=== PATIENT | female | born 1970 | race Caucasian/White ===

== ENCOUNTER 2020-01-04 11:34 | Inpatient (IN) ==
[2020-01-04] MEDS ORDERED: MECLIZINE HCL 25 MG TAB PO STA (12:50)
--- NOTE | 2020-01-04 12:53 | Emergency Department Note ---
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 Her ears pop. Following this she felt severely dizzy. This has gotten better. This occurred around 10 AM this morning. She has never had this before. She denies any change in vision or weakness or numb ness in her arms or legs. No headache. No fevers.Patient denies any chest pain shortness of breath cough or runny nose. She notes that she is just finishing up her antibiotics for her right otitis media. She was on 10 days of treatment for this. She does note keeping her head still in time has improved her symptoms. ROS: See above HPI for pertinent positives & negatives. A total of 10 systems reviewed and were otherwise negative. PAST MEDICAL HISTORY:See Below PAST SURGICAL HISTORY:See Below FAMILY HISTORY:See Below SOCIAL HISTORY:See Below HOME MEDICATIONS:See Below ALLERGIES:See Below VITALS:See Below PHYSICAL EXAMINATION: GENERAL: Sitting up in bed, alert, well appearing, well nourished, no distress, non-toxic EYE EXAM: normal conjunctiva. PERRL and EOM's intact. OROPHARYNX: no exudate, no erythema, lips, buccal mucosa, and tongue normal and mucous membranes are moist NECK: supple, no nuchal rigidity, no adenopathy, non-tender LUNGS: Clear to auscultation. Normal chest wall mechanics HEART: no murmurs, S1 normal and S2 normal ABDOMEN: abdomen soft, non-tender, normo-active bowel sounds, no masses, no rebound or guarding. BACK: Back is symmetrical on inspection and there is no deformity, no midline tenderness, no CVA tenderness. SKIN: no rashes and no bruising UPPER EXTREMITIES: upper extremities are grossly normal. LOWER EXTREMITIES: No pitting edema. NEURO EXAM: Normal sensorium, cranial nerves II-XII intact, normal speech, no weakness of arms, no weakness of legs. No drift. Finger to nose intact. Gross sensation intact. MEDICAL DECISION MAKING: Patient is a 49-year-old female that presents the ER for dizziness. She notes that this Started around 10 AM and has been fairly persistent. It is worse with movement of her head. She denies any other complaints. She did vomit. She is neurologically intact.IV was established blood work was obtained. Labs show no significant leukocytosis or anemia. INR was unremarkable. BMP with LFTs bilirubin and TSH was unremarkable. Troponin was detectable at 0.042. She had no chest pain or shortness of breath. EKG confirms A. fib with RVR. She notes that she has had palpitations fairly consistent for the past week.Patient was placed on Cardizem drip and bolus. Heart rate trended down to the 90s. Dizziness went away with the Antivert.Patient was updated and discussed with the hospitalist for admission. Triage Nursing notes reviewed. Prior medical records reviewed Vital Signs: reviewed and remarkable for Hypertension and tachycardia Differential diagnosis: Differential diagnosis includes etiologies such as benign positional vertigo, dehydration, hypovolemia, anemia, tumor, infection, hypoglycemia, electrolyte abnormalities, cardiac sources, intracerebral event, toxicologic, neurological, as well as others were entertained. ER treatment provided: See below Diagnostics interpreted by me: ECG: A. fib with RVR rate 104 Normal axis No PVCs Nonspecific ST wave changes in the inferior leads Cardiac Monitoring: An order was placed for continuous cardiac monitoring. The monitor shows a rate of 114 with afib rhythm. Laboratory studies: As stated above and show below. Imaging studies: Portable AP upright 1 view of the chest was unremarkable. CT of the head shows no acute infarct Consultation(s): D/w the hospitalist for admission. ED COURSE: Procedures: none Critical Care: I have personally spent 35 minutes of critical care time in the direct manage ment of this patient. This includes bedside care, interpretation of diagnostic studies, and testing, discussion with consultants, patient, and family members, and other required patient management activities. This 35 minutes is in excess of all separately billable procedures. Past Med/Surg History Medical History Anxiety Diabetes mellitus, type 2 Diverticular disease History of anesthesia reaction "woke up during c-sections (had general) and could hear everything, during one of c-sections had a panic attack when they were waking me up" Hypertension Morbid obesity with BMI of 45.0-49.9, adult Surgical History History of section x3 History of right oophorectomy History of tooth extraction Status post myringotomy with tube placement of both ears multiple times Family History Mother Family history of diabetes mellitus Family hx colonic polyps Grandfather (Maternal) Family history of diabetes mellitus Grandfather (Paternal) Family history of diabetes mellitus Grandmother (Paternal) Family history of diabetes mellitus Grandmother (Maternal) Family history of diabetes mellitus Family history of esophageal cancer Other No family history of adverse response to anesthesia Social History Preferred Language: Armenian Communication Ability: Effective Graining Operator Required: No Beliefs That Will Affect Care: None Current Living Situation: Spouse and Family Current Living Situation Comment: Lives with significant other and kids Other Information That Helps Us Care for You: No Feels Safe at Home: Yes Safety Concerns: Feels Safe At This Time Smoking Status: Former smoker Do You Dip or Chew Tobacco: No ; Second Hand Exposure: No ; Tobacco Cessation Education Requested by Patient: No Hx Alcohol Use: Yes Alcohol type: wine Hx Substance Use: No Allergies Allergies Allergy/AdvReac Type Severity Reaction Status Date / Time codeine Allergy Severe severe Verified 01/04/20 12:23 heart palpitations nickel Allergy Intermediate Rash Verified 01/04/20 12:23 Home Meds Home Medications Medication Instructions Recorded Confirmed Vitamin D3 3,000 unit PO QAM 09/14/19 01/04/20 fluticasone propionate [Flonase 2 spray INTRANASAL BID 09/14/19 01/04/20 Allergy Relief] lisinopril 20 mg PO QAM 09/14/19 01/04/20 magnesium 30 mg PO QAM 09/14/19 01/04/20 multivitamin 1 tab PO QAM 09/14/19 01/04/20 [id number]-epa-fish oil [[place]-3 2 cap PO 09/14/19 01/04/20 Fish Oil] propranolol 10 mg PO BID 09/14/19 01/04/20 amoxicillin 500 mg PO TID 01/04/20 01/04/20 aspirin 81 mg PO DAILY 01/04/20 01/04/20 metformin 500 mg PO 01/04/20 01/04/20 Results & Data (ED) Vital Signs Vital Signs - 24 hr 01/04/20 11:48 01/04/20 14:25 01/04/20 14:31 Temperature 36.4 C L Temperature Source Oral Pulse Rate 98 H Pulse Rate [Left] 104 H Pulse Rhythm [Left] Regular Pulse Strength [Left] Normal Respiratory Rate 20 18 Respiratory Effort / Characteristics Non-Labored Non-Labored Spontaneous Respiratory Depth Normal Normal Respiratory Pattern Regular Blood Pressure [Left Arm] 125/101 H Blood Pressure Mean [Left Arm] 109 Blood Pressure Position [Left Arm] Lying Pulse Oximetry 97 97 Oxygen Delivery Method Room Air Room Air Room Air Sepsis Recent Fever Within 48 Hours No Sepsis Action Taken by Nursing No Action Required 01/04/20 15:36 Temperature Temperature Source Pulse Rate Pulse Rate [Left] 136 H Pulse Rhythm [Left] Pulse Strength [Left] Respiratory Rate 20 Respiratory Effort / Characteristics Non-Labored Respiratory Depth Normal Respiratory Pattern Blood Pressure [Left Arm] 157/106 H Blood Pressure Mean [Left Arm] 123 Blood Pressure Position [Left Arm] Pulse Oximetry 99 Oxygen Delivery Method Sepsis Recent Fever Within 48 Hours Sepsis Action Taken by Nursing Laboratory Data Result diagrams: 01/04/20 13:15 01/04/20 13:15 Lab Results 01/04/20 01/04/20 01/04/20 Range/Units 13:15 13:15 13:15 WBC 7.81 (4.8-10.8) K/uL RBC 4.32 (4.2-5.4) M/uL Hgb 12.7 (12.0-16.0) g/dL Hct 36.6 L (37-47) % MCV 84.7 (80-100) fL MCH 29.4 (25-34) pg MCHC 34.7 (32-36) g/dL RDW Std Deviation 38.3 (36.4-46.3) fL RDW Coeff of Nory 12.5 (11.5-14.5) % Plt Count 223 (130-400) K/uL MPV 10.0 (7.4-10.4) fL Immature Gran % (Auto) 0.3 % Neut % (Auto) 66.8 % Lymph % (Auto) 26.2 % [place] % (Auto) 5.4 % Eos % (Auto) 1.2 % Baso % (Auto) 0.1 % Neut # (Auto) 5.22 (1.4-6.5) K/uL Lymph # (Auto) 2.05 (1.2-3.4) K/uL [place] # (Auto) 0.42 (0.11-0.59) K/uL Eos # (Auto) 0.09 (0-0.5) K/uL Baso # (Auto) 0.01 (0-0.2) K/uL Immature Gran # (Auto) 0.02 (0.00-0.02) K/uL PT 10.9 (9.0-12.0) Seconds INR 1.0 (0.9-1.1) Sodium 138 (136-145) mmol/L Potassium 3.8 (3.5-5.1) mmol/L Chloride 104 (98-107) mmol/L Carbon Dioxide 28 (21-32) mmol/L Anion Gap 6.0 (3-11) BUN 16 (7-18) mg/dl Creatinine 0.77 (0.6-1.2) mg/dl Est Cr Clr Drug Dosing 106.6 ml/min Est GFR ( Amer) 104.3 Est GFR (Non-Af Amer) 90.0 BUN/Creatinine Ratio 20.5 H (10-20) Glucose 143 H (70-99) mg/dl Calcium 9.3 (8.5-10.1) mg/dl Magnesium 1.9 (1.8-2.4) mg/dl Total Bilirubin 0.5 (0.2-1) mg/dl AST 19 (15-37) U/L ALT 27 (12-78) U/L Alkaline Phosphatase 82 (45-117) U/L Troponin I 0.042 (0-0.045) ng/ml Total Protein 7.6 (6.4-8.2) gm/dl Albumin 3.8 (3.4-5.0) gm/dl Globulin 3.8 (2.5-4.0) gm/dl Albumin/Globulin Ratio 1.0 (0.9-2) TSH 1.630 (0.300-4.500) uIu/ml Administered Medications Diltiazem HCl 125 mg/ Dextrose 125 mls @ 5 mls/hr IV .Q24H [facility]; Protocol Stop: 02/03/20 15:14 Last Admin: 01/04/20 15:39 Dose: 5 mg/hr, 5 mls/hr Documented by: [id number] Cosigned by: [id number] Discontinued Medications Diltiazem HCl (Cardizem) 10 mg IV NOW STA Stop: 01/04/20 16:09 Last Admin: 01/04/20 16:28 Dose: 25 mg Documented by: [id number] Cosigned by: [id number] Doxycycline Hyclate (Vibramycin) 100 mg PO NOW STA Stop: 01/04/20 15:23 Last Admin: 01/04/20 15:39 Dose: Not Given Documented by: [id number] Sodium Chloride (Nss 1000ml) 1,000 mls @ 999 mls/hr IV .Q1H1M [facility] Stop: 01/04/20 14:00 Last Infusion: 01/04/20 14:38 Dose: 0 mls/hr Documented by: [id number] Admin: 01/04/20 13:05 Dose: 999 mls/hr Documented by: [id number] Meclizine HCl (Antivert) 25 mg PO NOW STA Stop: 01/04/20 12:51 Last Admin: 01/04/20 13:31 Dose: 25 mg Documented by: [id number] Miscellaneous () 1 ea N/A NOW STA Stop: 01/04/20 15:02 Last Admin: 01/04/20 15:43 Dose: Not Given Documented by: [id number] Discharge Plan Visit Data Chief Complaint: Vertigo Stated Complaint: VERTIGO,VOMITING ED Provider: Felix Antonio Discharge Problem: Atrial fibrillation with rapid ventricular response, Vertigo, Hypertension, Anxiety Discharge Instructions Interventions: ED Discharge Assessment Last Done: 01/04/20 17:30 Discharge Problem: Hypertension Qualifiers: Hypertension type: unspecified Qualified Code(s): I10 - Essential (primary) hypertension
[2020-01-04] MEDS ORDERED: SODIUM CHLORIDE 0.9% 1000ML 1,000 ML IV SCH (13:00)
--- NOTE | 2020-01-04 13:08 | XRay Report ---
XR chest 1V portable CLINICAL HISTORY: dizzy mental status change COMPARISON STUDY: No previous studies for comparison. FINDINGS: The bones soft tissues and hemidiaphragms are normal. The cardiomediastinal silhouette is n ormal. The lungs are clear. The pulmonary vasculature is normal. IMPRESSION: Negative chest. ACT 112: Negative or not required by law. The above report was generated using voice recognition software. It may contain grammatical, syntax or spelling errors. Electronically signed by: Trace Reddy M.D. 01/04/2020 1:07 PM
[2020-01-04 13:31] LABS: Basophils # (auto) 0.01 K/uL (0-0.2); Basophils % (auto) 0.1 %; Eosinophils # (auto) 0.09 K/uL (0-0.5); Eosinophils % (auto) 1.2 %; Hematocrit (blood only) 36.6 % (37-47); Hemoglobin 12.7 g/dL (12.0-16.0); Immature Granulocytes # (auto) 0.02 K/uL (0.00-0.02); Immature Granulocytes % (auto) 0.3 %; Lymphocytes # (auto) 2.05 K/uL (1.2-3.4); Lymphocytes % (auto) 26.2 %; Mean Corpuscular Hemoglobin 29.4 pg (25-34); Mean Corpuscular Hgb Conc 34.7 g/dL (32-36); Mean Corpuscular Volume 84.7 fL (80-100); Monocytes # (auto) 0.42 K/uL (0.11-0.59); Monocytes % (auto) 5.4 %; Neutrophils # (auto) 5.22 K/uL (1.4-6.5); Neutrophils % (auto) 66.8 %; Platelet Count 223 K/uL (130-400); RDW Coefficient of Variation 12.5 % (11.5-14.5); RDW Standard Deviation 38.3 fL (36.4-46.3); Red Blood Count 4.32 M/uL (4.2-5.4); White Blood Count 7.81 K/uL (4.8-10.8)
[2020-01-04 13:46] LABS: Prothrombin Time 10.9 Seconds (9.0-12.0)
[2020-01-04 13:48] LABS: Albumin Level 3.8 gm/dl (3.4-5.0); BUN Creatinine Ratio 20.5 (10-20); Calcium 9.3 mg/dl (8.5-10.1); Creatinine Clr Calc Pharmacy 106.6 ml/min; Est GFR (African American) 104.3; Magnesium 1.9 mg/dl (1.8-2.4); Potassium 3.8 mmol/L (3.5-5.1)
[2020-01-04 14:06] LABS: Bilirubin,Total 0.5 mg/dl (0.2-1); Globulin 3.8 gm/dl (2.5-4.0); Thyroid Stimulating Hormone 1.63 uIu/ml (0.300-4.500); Total Protein 7.6 gm/dl (6.4-8.2); Troponin I 0.042 ng/ml (0-0.045)
--- NOTE | 2020-01-04 14:35 | CT Scan Report ---
HEAD CT NONCONTRAST CT DOSE: 537.48 mGy.cm HISTORY: dizzy TECHNIQUE: Multiaxial CT images of the head were performed without the use of intravenous contrast. A utomated exposure control was utilized for this study. A dose lowering technique was utilized adheri ng to the principles of ALARA. Comparison: None. Findings: The paranasal sinuses and mastoid air cells are clear. The calvarium and skull base are int act. The ventricles and sulci are within normal limits. There is no mass, hematoma, midline shift, or acute infarct. Impression: No acute intracranial abnormality. ACT 112: Negative or not required by law. Electronically signed by: Murali Saucedo M.D. 01/04/2020 2:33 PM
--- NOTE | 2020-01-04 14:56 | Electrocardiogram Report ---
Test Reason : Blood Pressure : / mmHG Vent. Rate : 104 BPM Atrial Rate : 394 BPM P-R Int : 000 ms QRS Dur : 086 ms QT Int : 332 ms P-R-T Axes : 000 031 000 degrees QTc Int : 436 ms Atrial fibrillation with rapid ventricular response Abnormal ECG No previous ECGs available Confirmed by Tigre David ([id number]) on 01/04/2020 2:55:42 PM Referred By: REFERRED SELF Confirmed By:Tigre David
[2020-01-04] MEDS ORDERED: STAT IV Infusion **Titration per Protocol STA (15:01)
[2020-01-04] MEDS ORDERED: DOXYCYCLINE HYCLATE 100 MG CAP PO STA (15:22)
[2020-01-04] MEDS: dilTIAZem HCL 125 MG in DEXTROSE 5% 100 ML IV SCH (15:39)
[2020-01-04] MEDS ORDERED: dilTIAZem HCl 5 MG/ML 5 ML VIAL IV STA (16:08)
[2020-01-04] MEDS ORDERED: SODIUM CHLORIDE 0.9% 1000ML 1,000 ML IV ONE (16:10)
--- NOTE | 2020-01-04 16:20 | History & Physical Report ---
Date of Service January 04, 2020 Assessment & Plan (1) Atrial fibrillation with rapid ventricular response: This is a 49-year-old female with PMH of DM II, HTN, history of tobacco use and other medical problems listed below who presents with dizziness since this morning and was found to have new onset A Fib with RVR. EKG with A Fib with RVR @ 104 bpm. HR fluctuating between 100-160 in setting of dehydration, caffeine use, stress. Also just began taking new perimenopausal herbal supplement Amberen Afebrile, no leukocytosis. CXR negative. Electrolytes wnl. TSH wnl. UA pending Given 1.5 L NSS in ED. Received 10mg diltiazem bolus with drip started at 5ml/hr Discussed with Dr. Hancock. Will also add Lopressor 25mg QID with hold parameters Starting Eliquis 5mg BID for anticoagulation Monitor on telemetry. TTE ordered (2) Vertigo: Describes ear popping sensation earlier today followed by positional dizziness, nausea and vomiting that have since resolved after meclizine in ED Likely due to serous otitis in R ear. Completed 10 day abx course today for R otitis media Continue Flonase and Meclizine 12.5mg PRN (3) Hypertension: BP elevated to 166/107 in ED in part due to stress Continue home lisinopril. Started Lopressor 25mg QID. Will hold home atenolol Monitor and add additional agents if needed (4) Diabetes mellitus, type 2: A1c 6.9 in September. Repeat a1c Hold home agents SSI while in-patient BSG AC HS DVT Ppx: Eliquis Code status: FULL PCP: Casey Dispo: Admitted to PCU. Plan to return home once medically stable. Patient seen in collaboration with Dr. Hunt. Please see addendum. History of Present Illness Chief Complaint: Palpitations, dizziness Primary Care Provider: Elise Johnson MD This is a 49-year-old female with PMH of DM II, HTN, history of tobacco use and other medical problems listed below who presents with dizziness since this morning. Patient is completing 10-day course of amoxicillin for right otitis media and felt her ear pop earlier today, followed by sudden onset of room spinning with associated nausea and multiple bouts of emesis. Dizziness was made worse with movement and has resolved since she has been here and received meclizine. Also endorses palpitations for the past month that are intermittent. Did start to take a baby aspirin due to fear that "something is wrong" with her heart. Was outdoors a lot over the weekend in the sun and became dehydrated. Had a large cup of coffee this morning without water or food. Also endorses starting perimenopausal supplement called Martha 4 days ago. Denies any personal history of atrial fibrillation or arrhythmias. Denies any alcohol use. Feels very anxious, especially lately. Denies any fever, chills, syncope, headache, cough, chest pain, shortness of breath, wheezing, abdominal pain, dysuria, diarrhea or constipation. Denies any known COVID contacts. Allergies Allergy/AdvReac Type Severity Reaction Status Date / Time codeine Allergy Severe severe Verified 01/04/20 12:23 heart palpitations nickel Allergy Intermediate Rash Verified 01/04/20 12:23 Home Medications Home Medications Medication Instructions Recorded Confirmed Type Vitamin D3 3,000 unit PO QAM 09/14/19 01/04/20 History fluticasone propionate [Flonase 2 spray INTRANASAL BID 09/14/19 01/04/20 History Allergy Relief] lisinopril 20 mg PO QAM 09/14/19 01/04/20 History magnesium 30 mg PO QAM 09/14/19 01/04/20 History multivitamin 1 tab PO QAM 09/14/19 01/04/20 History alqcr-1o-hup-epa-fish oil [[place]-3 2 cap PO HS 09/14/19 01/04/20 History Fish Oil] propranolol 10 mg PO BID 09/14/19 01/04/20 History amoxicillin 500 mg PO TID 01/04/20 01/04/20 History aspirin 81 mg PO DAILY 01/04/20 01/04/20 History metformin 500 mg PO HS 01/04/20 01/04/20 History Past Med/Surg History Medical History Anxiety Diabetes mellitus, type 2 Diverticular disease History of anesthesia reaction "woke up during c-sections (had general) and could hear everything, during one of c-sections had a panic attack when they were waking me up" Hypertension Morbid obesity with BMI of 45.0-49.9, adult Surgical History History of section x3 History of right oophorectomy History of tooth extraction Status post myringotomy with tube placement of both ears multiple times Family History Mother Family history of diabetes mellitus Family hx colonic polyps Grandfather (Maternal) Family history of diabetes mellitus Grandfather (Paternal) Family history of diabetes mellitus Grandmother (Paternal) Family history of diabetes mellitus Grandmother (Maternal) Family history of diabetes mellitus Family history of esophageal cancer Other No family history of adverse response to anesthesia Social History Preferred Language: Polish Communication Ability: Effective Bedspread Seamer Required: No Beliefs That Will Affect Care: None Current Living Situation: Spouse and Family Current Living Situation Comment: Lives with significant other and kids Other Information That Helps Us Care for You: No Feels Safe at Home: Yes Safety Concerns: Feels Safe At This Time Smoking Status: Former smoker Do You Dip or Chew Tobacco: No ; Second Hand Exposure: No ; Tobacco Cessation Education Requested by Patient: No Hx Alcohol Use: Yes Alcohol type: wine Hx Substance Use: No Review of Systems Review of Systems: At least ten systems reviewed and negative except as noted in the HPI. Physical Exam Physical Exam: General Appearance: WD/WN, vitals as above, NAD, sitting up in bed, anxious, tearful Head: normocephalic, atraumatic Eyes: normal inspection, PERRL, conjunctivae normal, anicteric sclerae. No nystagmus ENT: external ear and nose normal, oropharynx normal. +L TM with perforation (chronic), R TM cloudy appearance with air-fluid level present. No erythema or drainage Neck: trachea midline, no thyromegaly normal visual inspection Respiratory: normal respiratory effort, lungs clear to auscultation, no wheeze, rales, rhonchi. Normal insp/exp effort, no accessory muscle use Cardiovascular: irregular rate & rhythm, no murmur, normal peripheral pulses. Vessels: no JVD or carotid bruit Chest: normal inspection of chest Abdomen/GI: normal bowel sounds, soft, nontender, no hepatosplenomegaly Extremities/Musculoskeletal: no cyanosis or clubbing, extremities motor strength 5/5 Neurologic: PERRL, EOMI, accommodation nl, no face palsy, no dysarthria, CN's II-XI intact bilaterally and moves all extremities Psychiatric: A+Ox3, + anxious Skin: no rashes, normal color, warm/dry Results & Data Results & Data ([facility]) Vital Signs (Past 12 Hours) Vital Signs Temp Pulse Pulse Resp BP Pulse Ox 01/04/20 15:36 136 H 20 157/106 H 99 01/04/20 14:25 104 H 18 125/101 H 97 01/04/20 11:48 36.4 C L 98 H 20 97 Laboratory Results Short CBC 01/04/20 Range/Units 13:15 WBC 7.81 (4.8-10.8) K/uL Hgb 12.7 (12.0-16.0) g/dL Hct 36.6 L (37-47) % Plt Count 223 (130-400) K/uL BMP 01/04/20 13:15 Sodium 138 Potassium 3.8 Chloride 104 Carbon Dioxide 28 BUN 16 Creatinine 0.77 Glucose 143 H Calcium 9.3 Cardiac Enzymes 01/04/20 Range/Units 13:15 Troponin I 0.042 (0-0.045) ng/ml Liver Function 01/04/20 Range/Units 13:15 Total Bilirubin 0.5 (0.2-1) mg/dl AST 19 (15-37) U/L ALT 27 (12-78) U/L Alkaline Phosphatase 82 (45-117) U/L Albumin 3.8 (3.4-5.0) gm/dl Diagnostic Findings CT head: Impression: No acute intracranial abnormality. CXR: IMPRESSION: Negative chest. ECG Rhythm: atrial fibrillation Code Status & VTE Plan VTE Prophylaxis Plan VTE Prophylaxis will be ordered: Yes Supervising Physician Co-Signing Physician Notes HISTORY: Record reviewed. Patient interviewed and examined. Care coordinated with Aby Basurto PA-C. Please refer to her documentation for complete history. Briefly, 49 YO female who presented to ED with vertigo and AF. EXAM: General- no distress Lungs- clear to auscultation; no respiratory distress Cardiovascular- irregularly irregular; no JVD; no pretibial edema Abdomen- + bowel sounds, soft, nontender Extremities- no cyanosis; no calf tenderness Neuro- alert, oriented; no nystagmus with lateral gaze Skin- warm & dry DATA: 01/04/20 13:15 01/04/20 13:15 Mg = 1.9. TSH = 1.63. Other lab studies as noted. Chest x-ray unremarkable. CT head negative. EKG performed at 1430 reviewed and demonstrated AF at 104 / minute, no acute ST or T-wave changes. ASSESSMENT AND PLAN: AF, paroxysmal. Lytes and TSH normal. Cardiology consulted. IV diltiazem and metoprolol ordered. Started on apixaban. Vertigo Peripheral vs central. Improved with meclizine. Consider MRI / MRA. Please refer to GRAEME Basurto's documentation for discussion of other issues.
[2020-01-04] MEDS ORDERED: POLYETHYLENE (MIRALAX) 17 GM PACK PO PRN (17:49)
[2020-01-04] MEDS ORDERED: DEXTROSE 50% 50 ML SYRINGE IV PRN (17:49)
[2020-01-04] MEDS ORDERED: ACETAMINOPHEN 325 MG TAB PO PRN (17:49)
[2020-01-04] MEDS ORDERED: CARBOHYDRATES FOR HYPOGLYCEMIA PO PRN (17:49)
[2020-01-04] MEDS ORDERED: GLUCOSE 40% GEL 15 GM TUBE PO PRN (17:49)
[2020-01-04] MEDS ORDERED: GLUCAGON FOR INJ 1 MG VIAL SQ PRN (17:49)
[2020-01-04] MEDS ORDERED: MECLIZINE 12.5 MG TAB PO PRN (17:49)
[2020-01-04] MEDS ORDERED: ONDANSETRON INJ 2 MG/ML 2 ML VIAL IV PRN (17:49)
[2020-01-04] MEDS ORDERED: GLUCOSE 10 TABS/TUBE PO PRN (17:49)
[2020-01-04] MEDS: METOPROLOL TARTRATE 25 MG TAB PO SCH ×2 (21:17→22:57)
[2020-01-04] MEDS: APIXABAN 5 MG TABLET PO SCH (21:17)
[2020-01-04] MEDS: FLUTICASONE PROPIONATE NA SPR 16 GM BTL NAE SCH (21:17)
[2020-01-04] MEDS: INSULIN ASPART 100 UNITS/ML 3 ML PEN SC SCH (21:21)
[2020-01-04] MEDS ORDERED: LORazepam 0.5 MG TAB PO STA (21:22)
[2020-01-04 22:07] LABS: Appearance Urine Clear (Clear); Bilirubin Urine Negative (Negative); Blood Urine Negative (Negative); Color Urine Yellow; Glucose Urine UA Negative (Negative); Ketones Urine Negative (Negative); Leukocyte Esterase Urine Negative (Negative); Nitrite Urine Negative (Negative); Protein Urine Negative (Negative); Specific Gravity Urine 1.008 (1.000-1.030); Urobilinogen Urine Negative (Negative); pH Urine 6.5 (4.5-7.5)
[2020-01-04 22:09] LABS: Pregnancy Test, Urine Negative (Negative)
[2020-01-05 06:41] LABS: Hematocrit (blood only) 35.6 % (37-47); Mean Corpuscular Hemoglobin 29.1 pg (25-34); Mean Corpuscular Hgb Conc 33.7 g/dL (32-36); Mean Corpuscular Volume 86.2 fL (80-100); Mean Platelet Volume 9.5 fL (7.4-10.4); Platelet Count 209 K/uL (130-400); RDW Coefficient of Variation 12.7 % (11.5-14.5); RDW Standard Deviation 39.5 fL (36.4-46.3); Red Blood Count 4.13 M/uL (4.2-5.4); White Blood Count 7.34 K/uL (4.8-10.8)
[2020-01-05 07:08] LABS: Estimated Average Glucose 148 mg/dl; Hemoglobin A1C 6.8 % (4.5-5.6)
[2020-01-05 07:15] LABS: BUN Creatinine Ratio 15.8 (10-20); Calcium 9.1 mg/dl (8.5-10.1); Est GFR (African American) 107.7; Est GFR (Non-African American) 92.9; Potassium 3.6 mmol/L (3.5-5.1)
[2020-01-05] MEDS: dilTIAZem HCL 125 MG in DEXTROSE 5% 100 ML IV SCH (08:00)
[2020-01-05] MEDS: INSULIN ASPART 100 UNITS/ML 3 ML PEN SC SCH ×4 (08:00→21:14)
[2020-01-05] MEDS: METOPROLOL TARTRATE 25 MG TAB PO SCH ×4 (08:01→21:14)
[2020-01-05] MEDS: CHOLECALCIFEROL 1,000 UNITS 25 MCG TAB PO SCH (08:02)
[2020-01-05] MEDS: lisinopriL 20 MG TAB PO SCH (08:02)
[2020-01-05] MEDS: FLUTICASONE PROPIONATE NA SPR 16 GM BTL NAE SCH ×2 (08:02→21:14)
[2020-01-05] MEDS: APIXABAN 5 MG TABLET PO SCH ×2 (08:02→21:14)
[2020-01-05] MEDS: MULTIVITAMIN TAB PO SCH (08:02)
[2020-01-05] MEDS ORDERED: NON-FORMULARY MEDICATION (Magnesium 30 MG) PO SCH (09:00)
--- NOTE | 2020-01-05 14:05 | Cardiology Consultation ---
Date of Consultation January 05, 2020 Assessment & Plan (1) Atrial fibrillation with rapid ventricular response: The patient presents with newly recognized atrial fibrillation with rapid ventricular response. As noted she had received IV diltiazem, and oral metoprolol. At the time of my initial assessment this morning diltiazem was infusing at 5 mg/h. Since my initial exam, I received a page from her nurse, stating that the patient converted back to sinus rhythm. I reviewed the telemetry, and patient converted at 1334, with no significant conversion pauses. A repeat EKG performed performed per my request at 1338 revealed normal sinus rhythm at 75 bpm, normal EKG with sinus rhythm having replaced atrial fibrillation. The patient's [id number] score is 3 for risk factors of female, DM, and HTN predicting a a moderate to high risk of cardioembolic stroke in the setting of paroxysmal atrial fibrillation, with estimated annual stroke rate of 3.2%. Coagulation is therefore recommended, and I would recommend Eliquis for stroke prophylaxis. At this time the IV diltiazem infusion has been discontinued. Continue metoprolol tartrate 25 mg p.o. every 6, and the dose will be titrated as necessary. Continue Eliquis 5 mg twice daily for stroke prophylaxis. An echocardiogram has been requested and will be reviewed. Her TSH is within normal limits. The for evaluation of dizziness which sounds like it may have been neurovestibular in etiology to the primary team. History of Present Illness Attending Physician: Vince Hunt MD History of Present Illness Paulina Chopra is a 49 year old female seen in cardiology consultation per the reques of Aby Basurto PA-C and Dr Hunt of the [facility] service for the evaluation of new onset atrial fibrillation. The patient had recently been prescribed a 10-day course of amoxicillin for right otitis media. 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 And she was vomiting, she could feel that her heart rate was elevated and irre gular. She notes that she has had a longstanding history of occasional palpitations since her 20s, these would typically come and go with her menstrual cycle. She notes recent onset of palpitations more frequently over the last 3 months since she has entered menopause. EKG performed 01/04/2020 at 1430 revealed atrial fibrillation with rapid ventricular response 104 bpm, with telemetry findings of heart rates going up as high as the 140 bpm at around that time. Treatment was initiated with diltiazem infusion 5 mg/h, metoprolol succinate 25 mg p.o. every 6, and Eliquis 5 mg twice daily for stroke prophylaxis. Allergies Allergy/AdvReac Type Severity Reaction Status Date / Time codeine Allergy Severe severe Verified 01/04/20 12:23 heart palpitations nickel Allergy Intermediate Rash Verified 01/04/20 12:23 Home Medications Home Medications Medication Instructions Recorded Confirmed Type Vitamin D3 3,000 unit PO QAM 09/14/19 01/04/20 History fluticasone propionate [Flonase 2 spray INTRANASAL BID 09/14/19 01/04/20 History Allergy Relief] lisinopril 20 mg PO QAM 09/14/19 01/04/20 History magnesium 30 mg PO QAM 09/14/19 01/04/20 History multivitamin 1 tab PO QAM 09/14/19 01/04/20 History [id number] oil [Antonito-3 2 cap PO HS 09/14/19 01/04/20 History Fish Oil] propranolol 10 mg PO BID 09/14/19 01/04/20 History amoxicillin 500 mg PO TID 01/04/20 01/04/20 History aspirin 81 mg PO DAILY 01/04/20 01/04/20 History metformin 500 mg PO HS 01/04/20 01/04/20 History Patient History Medical History Anxiety (Acute) Diabetes mellitus, type 2 Diverticular disease History of anesthesia reaction "woke up during c-sections (had general) and could hear everything, during one of c-sections had a panic attack when they were waking me up" Hypertension (Acute) Morbid obesity with BMI of 45.0-49.9, adult Surgical History History of section x3 History of right oophorectomy History of tooth extraction Status post myringotomy with tube placement of both ears multiple times Family History Mother Family history of diabetes mellitus Family hx colonic polyps Grandfather (Maternal) Family history of diabetes mellitus Grandfather (Paternal) Family history of diabetes mellitus Grandmother (Paternal) Family history of diabetes mellitus Grandmother (Maternal) Family history of diabetes mellitus Family history of esophageal cancer Other No family history of adverse response to anesthesia Social History Preferred Language: Czech Communication Ability: Effective 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: No Beliefs That Will Affect Care: None Current Living Situation: Spouse and Family Current Living Situation Comment: Lives with significant other and kids Other Information That Helps Us Care for You: No Feels Safe at Home: Yes Safety Concerns: Feels Safe At This Time Smoking Status: Former smoker Do You Dip or Chew Tobacco: No ; Second Hand Exposure: No ; Tobacco Cessation Education Requested by Patient: No Hx Alcohol Use: Yes Alcohol type: wine Hx Substance Use: No Review of Systems Review of Systems: All systems reviewed & are unremarkable except as noted in HPI & below Physical Exam Physical Exam: Temp Pulse Resp BP Pulse Ox 36.7 C 84 16 132/68 99 01/05/20 11:43 01/05/20 11:43 01/05/20 11:43 01/05/20 11:43 01/05/20 11:43 Constitutional: WD/WN, vitals as above Respiratory: normal respiratory effort, lungs clear to auscultation Cardiovascular: Rate/Rhythm: + irregularly irregular Heart Sounds: no murmur Vessels: no JVD Extremities: no edema Gastrointestinal (Abdomen): normal bowel sounds, soft, nontender, no hepatosplenomegaly Neurologic: PERRL, EOMI, accommodation nl, no face palsy, no dysarthria Results & Data ([facility]) Vital Signs (Past 12 Hours) Vital Signs Temp Pulse Pulse Resp BP Pulse Ox 01/05/20 11:43 36.7 C 84 16 132/68 99 01/05/20 08:00 36.8 C 74 18 127/77 96 01/05/20 07:31 78 01/05/20 03:25 36.6 C 72 19 104/67 96 Laboratory Results CBC 01/05/20 Range/Units 06:29 WBC 7.34 (4.8-10.8) K/uL RBC 4.13 L (4.2-5.4) M/uL Hgb 12.0 (12.0-16.0) g/dL Hct 35.6 L (37-47) % Plt Count 209 (130-400) K/uL Comprehensive Metabolic Panel 01/05/20 Range/Units 06:29 Sodium 144 (136-145) mmol/L Potassium 3.6 (3.5-5.1) mmol/L Chloride 110 H (98-107) mmol/L Carbon Dioxide 28 (21-32) mmol/L BUN 12 (7-18) mg/dl Creatinine 0.75 (0.6-1.2) mg/dl Glucose 158 H (70-99) mg/dl Calcium 9.1 (8.5-10.1) mg/dl Intake and Output 01/04/20 01/05/20 01/05/20 22:59 06:59 14:59 Intake Total 1036.500 / 2136.500 100 / 2136.500 74.083 / 74.083 Output Total 250 / 1050 800 / 1050 Balance 786.500 / 1086.500 -700 / 1086.500 74.083 / 74.083 Intake: IV 1036.500 / 2036.500 74.083 / 74.083 Nss 1000ML 1,000 ml @ 999 mls/ 1000 / 1000 hr IV .Q1H1M ONE Rx#:[id number] Cardizem 125 mg In D5 100 ml @ 36.500 / 36.500 74.083 / 74.083 5 MG/HR 5 mls/hr IV .Q24H IRIS Rx#:[id number] Oral 100 / 100 Output: Urine 250 / 1050 800 / 1050 Other: Weight 115.6 kg 117.2 kg
[2020-01-05] MEDS ORDERED: LORazepam 1 MG TAB PO SCH (15:00)
--- NOTE | 2020-01-05 16:35 | Electrocardiogram Report ---
Test Reason : Blood Pressure : / mmHG Vent. Rate : 075 BPM Atrial Rate : 075 BPM P-R Int : 152 ms QRS Dur : 082 ms QT Int : 374 ms P-R-T Axes : 056 050 016 degrees QTc Int : 417 ms Normal sinus rhythm Low voltage QRS Borderline ECG When compared with ECG of 04-JAN-2020 14:30, Sinus rhythm has replaced Atrial fibrillation Confirmed by Tigre David ([id number]) on 01/05/2020 4:34:47 PM Referred By: REFERRED SELF Confirmed By:Tigre David
--- NOTE | 2020-01-05 20:27 | Magnetic Resonance Report ---
Brain MRI WITHOUT CONTRAST HISTORY: atrial fib, vertigo, r/o stroke TECHNIQUE: Multiplanar multisequence MRI of the brain was performed without the use of contrast. COMPARISON STUDY: Head CT 01/04/2020. FINDINGS: There is no mass, hematoma, midline shift, or acute infarct. The paranasal sinuses are patrick r. The mastoid air cells are clear. The ventricles and sulci demonstrate mild age-related involutiona l changes. Multiple scattered foci of T2 hyperintensity seen within the periventricular and subcortic al white matter are nonspecific but suggestive of mild microvascular ischemic changes. The major vasc ular flow voids at the skull base are well-maintained. IMPRESSION: No acute intracranial abnormality. Multiple scattered foci of T2 hyperintensity seen within the periv entricular and subcortical white matter are nonspecific but favor microvascular ischemic change. 88 d isease, Lyme disease, or migraines can also have a similar appearance in the appropriate clinical set ting. ACT 112: Negative or not required by law. Electronically signed by: Murali Saucedo M.D. 01/05/2020 8:26 PM
--- NOTE | 2020-01-05 20:38 | Hospitalist Progress Note ---
Date of Service January 05, 2020 Assessment & Plan (1) Atrial fibrillation with rapid ventricular response: Recent intermittent palpitations. Presented with AF + RVR. K, Mg, TSH normal. Cardiology consulted. Initially managed with diltiazem infusion. Started on metoprolol. Anticoagulated with apixaban. Echo ordered. Further management per Cardiology. (2) Vertigo: Probable peripheral. Check MRI to r/o cardioembolic stroke. (3) Hypertension: Usually managed with lisinopril. Metoprolol added for AF. Follow and titrate Rx. (4) Diabetes mellitus, type 2: Hgb A1c = 6.8. Hold metformin during hospital stay. Insulin coverage as needed. FBS today = 161. (5) DVT prophylaxis: Apixaban. Ambulate. (6) Discharge planning issues: Anticipated discharge to home. Internal Medicine follow-up with Dr. Peña. Admission and Anticipated Discharge Date Admission Date: January 04, 2020 Subjective Recheck for AF and vertigo. Patient seen in their room around 1400. Was still in AF this morning, but converted to NS this afternoon. Vertigo resolved. Review of Systems: Constitutional- no fever. Cardiac- no chest pain. Pulmonary- no cough or SOB. GI- no nausea, vomiting, diarrhea, melena, hematochezia. - no urinary symptoms. Otherwise, as noted above. Physical Exam Constitutional: no acute distress Respiratory: no respiratory distress Auscultation: lungs clear to auscultation bilaterally Cardiovascular: Rate/Rhythm: regular rate and regular rhythm Heart Sounds: no gallop, no murmur and no cardiac rub Vessels: no JVD Extremities: no calf tenderness and no edema Gastrointestinal (Abdomen): normal bowel sounds, soft, nontender, no hepatosplenomegaly Skin: no rashes, warm and dry Psychiatric: Orientation: alert and oriented x 3 Results & Data Results & Data ([facility]) Vital Signs (Past 12 Hours) Vital Signs Temp Pulse Pulse Resp BP BP Pulse Ox 01/05/20 16:00 67 01/05/20 15:47 36.7 C 63 19 121/83 97 01/05/20 11:43 36.7 C 84 16 132/68 99 Laboratory Results Laboratory Results - last 24 hr 01/05/20 01/05/20 01/05/20 06:29 06:29 06:29 WBC 7.34 RBC 4.13 L Hgb 12.0 Hct 35.6 L MCV 86.2 MCH 29.1 MCHC 33.7 RDW Std Deviation 39.5 RDW Coeff of Nory 12.7 Plt Count 209 MPV 9.5 Sodium 144 Potassium 3.6 Chloride 110 H Carbon Dioxide 28 Anion Gap 6.0 BUN 12 Creatinine 0.75 Est Cr Clr Drug Dosing 109.0 Est GFR ( Amer) 107.7 Est GFR (Non-Af Amer) 92.9 BUN/Creatinine Ratio 15.8 Glucose 158 H POC Glucose Estimat Average Glucose 148 Hemoglobin A1c 6.8 H Calcium 9.1 01/05/20 01/05/20 01/05/20 07:21 11:22 16:31 WBC RBC Hgb Hct MCV MCH MCHC RDW Std Deviation RDW Coeff of Nory Plt Count MPV Sodium Potassium Chloride Carbon Dioxide Anion Gap BUN Creatinine Est Cr Clr Drug Dosing Est GFR ( Amer) Est GFR (Non-Af Amer) BUN/Creatinine Ratio Glucose POC Glucose 161 H 194 H 92 Estimat Average Glucose Hemoglobin A1c Calcium 01/05/20 20:29 WBC RBC Hgb Hct MCV MCH MCHC RDW Std Deviation RDW Coeff of Nory Plt Count MPV Sodium Potassium Chloride Carbon Dioxide Anion Gap BUN Creatinine Est Cr Clr Drug Dosing Est GFR ( Amer) Est GFR (Non-Af Amer) BUN/Creatinine Ratio Glucose POC Glucose 158 H Estimat Average Glucose Hemoglobin A1c Calcium (1) Hypertension Hypertension type: unspecified Qualified Code(s): I10 - Essential (primary) hypertension
[2020-01-06 07:14] LABS: Hematocrit (blood only) 37.5 % (37-47); Hemoglobin 12.1 g/dL (12.0-16.0); Mean Corpuscular Hemoglobin 28.5 pg (25-34); Mean Corpuscular Hgb Conc 32.3 g/dL (32-36); Mean Corpuscular Volume 88.4 fL (80-100); Mean Platelet Volume 9.6 fL (7.4-10.4); Platelet Count 228 K/uL (130-400); RDW Standard Deviation 41.3 fL (36.4-46.3); Red Blood Count 4.24 M/uL (4.2-5.4); White Blood Count 7.44 K/uL (4.8-10.8)
[2020-01-06 07:41] LABS: BUN Creatinine Ratio 20.9 (10-20); Calcium 8.8 mg/dl (8.5-10.1); Creatinine Clr Calc Pharmacy 113.5 ml/min; Est GFR (African American) 113.2; Est GFR (Non-African American) 97.7; Potassium 3.8 mmol/L (3.5-5.1)
[2020-01-06] MEDS: METOPROLOL TARTRATE 25 MG TAB PO SCH (07:55)
[2020-01-06] MEDS: lisinopriL 20 MG TAB PO SCH (07:55)
[2020-01-06] MEDS: MULTIVITAMIN TAB PO SCH (07:55)
[2020-01-06] MEDS: CHOLECALCIFEROL 1,000 UNITS 25 MCG TAB PO SCH (07:55)
[2020-01-06] MEDS: FLUTICASONE PROPIONATE NA SPR 16 GM BTL NAE SCH (07:56)
[2020-01-06] MEDS: APIXABAN 5 MG TABLET PO SCH (07:56)
[2020-01-06] MEDS: INSULIN ASPART 100 UNITS/ML 3 ML PEN SC SCH (07:57)
--- NOTE | 2020-01-06 11:14 | Cardiology Progress Note ---
Date of Service January 06, 2020 Assessment & Plan (1) Atrial fibrillation with rapid ventricular response: Stable for discharge. Will transition to metoprolol succinate 50 mg daily. The patient's [id number] score is 3 for risk factors of female, DM, and HTN predicting a a moderate to high risk of cardioembolic stroke in the setting of paroxysmal atrial fibrillation, with estimated annual stroke rate of 3.2%. Coagulation is therefore recommended, and I would recommend Eliquis for stroke prophylaxis. Patient endorses recent camping trip to [place], [place]. She notes no rash, fevers, or known tick bites. MRI of the brain reveals no acute intracranial pathology, but small vessel ischemic changes noted, present for her age. Also T2 foci noted suggestive of possible Lyme. I think that given her atrial fibrillation, it is prudent to screen for Lyme disease and therefore I have or dered a the screening lab. Pt is stable from cardiac perspective for discharge. Subjective Patient seen in follow-up of atrial fibrillation. She remains in sinus rhythm having spontaneously converted while on IV diltiazem and oral metoprolol yesterday 01/05/2020. Follow-up echocardiogram revealed normal LVEF and no significant valvular heart disease. She has had no recurrent dizziness. Physical Exam Physical Exam: Temp Pulse Resp BP Pulse Ox 36.3 C L 60 18 120/81 99 01/06/20 07:50 01/06/20 08:00 01/06/20 07:50 01/06/20 07:50 01/06/20 07:50 Constitutional: WD/WN, vitals as above Respiratory: normal respiratory effort, lungs clear to auscultation Cardiovascular: RRR, no murmur, no edema Gastrointestinal (Abdomen): normal bowel sounds, soft, nontender, no hepatosplenomegaly Skin: no rashes, warm and dry Neurologic: PERRL, EOMI, accommodation nl, no face palsy, no dysarthria Results & Data Vital Signs (Past 12 Hours) Vital Signs Temp Pulse Pulse Resp BP Pulse Ox 01/06/20 08:00 60 01/06/20 07:50 36.3 C L 62 18 120/81 99 01/06/20 03:54 36.4 C L 60 16 137/83 96 Medications Administered Current Inpatient Medications Acetaminophen (Tylenol) 650 mg PO Q4H PRN PRN Reason: Pain or Fever Stop: 02/03/20 17:48 Apixaban (Eliquis) 5 mg PO BID [facility] Stop: 02/03/20 20:59 Last Admin: 01/06/20 07:56 Dose: 5 mg Documented by: Dextrose (Dextrose 50%) 25 - 50 ml IV UD PRN; Protocol PRN Reason: Hypoglycemia Protocol Stop: 02/03/20 17:48 Fluticasone Propionate (Flonase) 2 sprays NISHA BID [facility] Stop: 02/03/20 20:59 Last Admin: 01/06/20 07:56 Dose: 2 sprays Documented by: Glucagon (Glucagen) 1 mg SQ UD PRN; Protocol PRN Reason: Hypoglycemia Protocol Stop: 02/03/20 17:48 Glucose (Dex4 Glucose) 4 - 8 tabs PO UD PRN; Protocol PRN Reason: Hypoglycemia Protocol Stop: 02/03/20 17:48 Glucose (Glucose 40%) 15 - 30 gm PO UD PRN; Protocol PRN Reason: Hypoglycemia Protocol Stop: 02/03/20 17:48 Insulin Aspart (Novolog Flexpen) 0 units SC ACHS [facility] Stop: 02/03/20 20:59 Last Admin: 01/06/20 07:57 Dose: 7 units Documented by: Lisinopril (Zestril) 20 mg PO QAM [facility] Stop: 02/04/20 08:59 Last Admin: 01/06/20 07:55 Dose: 20 mg Documented by: Meclizine HCl (Antivert) 12.5 mg PO TID PRN PRN Reason: Vertigo Stop: 02/03/20 17:48 Metoprolol Tartrate (Lopressor) 25 mg PO QID [facility] Stop: 02/03/20 17:40 Last Admin: 01/06/20 07:55 Dose: 25 mg Documented by: Miscellaneous (Carbohydrates For Hypoglycemia) 15 - 30 gm PO UD PRN PRN Reason: Hypoglycemia Protocol Stop: 02/03/20 17:48 Multivitamins (Multivitamin Tab) 1 tab PO QAM [facility] Stop: 02/04/20 08:59 Last Admin: 01/06/20 07:55 Dose: 1 tab Documented by: Ondansetron HCl (Zofran) 4 mg IV Q6H PRN PRN Reason: Nausea Stop: 02/03/20 17:48 Polyethylene Glycol (Miralax Powder Packet) 17 gm PO DAILY PRN PRN Reason: Constipation Stop: 02/03/20 17:48 Vitamin D (Vitamin D3) 3,000 units PO DAILY [facility] Stop: 02/04/20 08:59 Last Admin: 01/06/20 07:55 Dose: 3,000 units Documented by:
--- NOTE | 2020-01-06 12:03 | Hospitalist Progress Note ---
Date of Service January 06, 2020 Assessment & Plan (1) Atrial fibrillation with rapid ventricular response: Present on admission with palpitation and dizziness Found to be in AFib with RVR on admission Received cardizim IV in the ER Was starting on IV cardizem drip in the ER Cardiology consulted Was starting on metoprolol 25mg q6h, then transition to Metoprolol succinate 50mg daily Currently on NSR with rate control ECHO showed no significant valvular pathology visualized. left atrial size is normal. Ejection fraction 65 to 70%. Anticoagulated with apixaban. Clinically stable (2) Vertigo: Probable peripheral. CT head showed no acute intracranial abnormality Check MRI head showed no acute intracranial abnormality. Multiple scattered foci of T2 hyperintensity seen within the periventricular and subcortical white matter are nonspecific but favor microvascular ischemic change. Lyme titer order pending due to MRI finding (3) Hypertension: BP stable Continue lisinopril Continue Metoprolol that started during hospital course Continue Monitor BP (4) Diabetes mellitus, type 2: Hgb A1c = 6.8.on discharge Insulin coverage as needed. FBS today = 161. Continue Monitor BS (5) DVT prophylaxis: Apixaban. Ambulate. (6) Discharge planning issues: Anticipated discharge to home. Internal Medicine follow-up with Dr. Peña. Admission and Anticipated Discharge Date Admission Date: January 04, 2020 Subjective Pt was seen and examined Sitting in bed with no distress eating lunch Pt said that she feels fine She said that she does not have any dizziness Denies any chest pain, palpitation, dizziness and SOB Physical Exam Physical Exam: General- No acute distress Head- atraumatic Eyes- PERRL, EOMI, ENT- oropharynx clear Neck- supple, no JVD Lungs- clear to auscultation Heart- regular rhythm; no murmur Abdomen- normal bowel sounds, soft, nontender Extremities- no calf tenderness Neuro- alert, oriented x 3; PERRL, EOMI; no facial palsy; no dysarthria Skin- warm & dry Results & Data Results & Data ([facility]) Vital Signs (Past 12 Hours) Vital Signs Temp Pulse Pulse Resp BP Pulse Ox 01/06/20 11:32 36.9 C 68 17 136/88 96 01/06/20 08:00 60 01/06/20 07:50 36.3 C L 62 18 120/81 99 01/06/20 03:54 36.4 C L 60 16 137/83 96 (1) Hypertension Hypertension type: unspecified Qualified Code(s): I10 - Essential (primary) hypertension
[2020-01-06 12:43] LABS: Lyme Ab IgG w/WB Rflx Negative (Negative); Lyme Ab IgM w/WB Rflx Negative (Negative)
[2020-01-07] MEDS ORDERED: METOPROLOL SUCC 50MG EXT REL TAB PO SCH (09:00)
--- NOTE | 2020-01-09 08:58 | Discharge Summary ---
Date of Service January 06, 2020 Admission HPI Per Admitting Provider This is a 49-year-old female with PMH of DM II, HTN, history of tobacco use and other medical problems listed below who presents with dizziness since this morning. Patient is completing 10-day course of amoxicillin for right otitis media and felt her ear pop earlier today, followed by sudden onset of room spinning with associated nausea and multiple bouts of emesis. Dizziness was made worse with movement and has resolved since she has been here and received meclizine. Also endorses palpitations for the past month that are intermittent. Did start to take a baby aspirin due to fear that "something is wrong" with her heart. Was outdoors a lot over the weekend in the sun and became dehydrated. Had a large cup of coffee this morning without water or food. Also endorses starting perimenopausal supplement called Amberen 4 days ago. Denies any personal history of atrial fibrillation or arrhythmias. Denies any alcohol use. Feels very anxious, especially lately. Denies any fever, chills, syncope, headache, cough, chest pain, shortness of breath, wheezing, abdominal pain, dysuria, diarrhea or constipation. Denies any known COVID contacts. Admission Exam Per Admitting Provider General Appearance: WD/WN, vitals as above, NAD, sitting up in bed, anxious, tearful Head: normocephalic, atraumatic Eyes: normal inspection, PERRL, conjunctivae normal, anicteric sclerae. No nystagmus ENT: external ear and nose normal, oropharynx normal. +L TM with perforation (chronic), R TM cloudy appearance with air-fluid level present. No erythema or drainage Neck: trachea midline, no thyromegaly normal visual inspection Respiratory: normal respiratory effort, lungs clear to auscultation, no wheeze, rales, rhonchi. Normal insp/exp effort, no accessory muscle use Cardiovascular: irregular rate & rhythm, no murmur, normal peripheral pulses. Vessels: no JVD or carotid bruit Chest: normal inspection of chest Abdomen/GI: normal bowel sounds, soft, nontender, no hepatosplenomegaly Extremities/Musculoskeletal: no cyanosis or clubbing, extremities motor strength 5/5 Neurologic: PERRL, EOMI, accommodation nl, no face palsy, no dysarthria, CN's II-XI intact bilaterally and moves all extremities Psychiatric: A+Ox3, + anxious Skin: no rashes, normal color, warm/dry Principal Diagnosis Atrial fibrillation with rapid ventricular response Vertigo Hypertension Diabetes mellitus, type 2 Discharge Exam General- No acute distress Head- atraumatic Eyes- PERRL, EOMI, ENT- oropharynx clear Neck- supple, no JVD Lungs- clear to auscultation Heart- regular rhythm; no murmur Abdomen- normal bowel sounds, soft, nontender Extremities- no calf tenderness Neuro- alert, oriented x 3; PERRL, EOMI; no facial palsy; no dysarthria Skin- warm & dry Discharge Data Allergies Allergy/AdvReac Type Severity Reaction Status Date / Time codeine Allergy Severe severe Verified 01/04/20 12:23 heart palpitations nickel Allergy Intermediate Rash Verified 01/04/20 12:23 Consultations 01/04/20 15:22 ED Decision to Admit Stat 01/04/20 17:49 Consult Cardiology Routine Ordered Studies 01/04/20 12:50 CT head/brain wo con Stat 01/05/20 14:15 MR brain wo con Routine XR chest 1V portable CLINICAL HISTORY: dizzy mental status change COMPARISON STUDY: No previous studies for comparison. FINDINGS: The bones soft tissues and hemidiaphragms are normal. The cardiomediastinal silhouette is normal. The lungs are clear. The pulmonary vasculature is normal. IMPRESSION: Negative chest. ACT 112: Negative or not required by law. The above report was generated using voice recognition software. It may contain grammatical, syntax or spelling errors. Electronically signed by: Trace Reddy M.D. 01/04/2020 1:07 PM Dictated: 01/04/20 1307 Transcribed: 01/04/[address] CT DOSE: 537.48 mGy.cm HISTORY: dizzy TECHNIQUE: Multiaxial CT images of the head were performed without the use of intravenous contrast. Automated exposure control was utilized for this study. A dose lowering technique was utilized adhering to the principles of ALARA. Comparison: None. Findings: The paranasal sinuses and mastoid air cells are clear. The calvarium and skull base are intact. The ventricles and sulci are within normal limits. There is no mass, hematoma, midline shift, or acute infarct. Impression: No acute intracranial abnormality. ACT 112: Negative or not required by law. Electronically signed by: Murali Saucedo M.D. 01/04/2020 2:33 PM Dictated: 01/04/20 1422 Transcribed: 01/04/201421 Brain MRI WITHOUT CONTRAST HISTORY: atrial fib, vertigo, r/o stroke TECHNIQUE: Multiplanar multisequence MRI of the brain was performed without the use of contrast. COMPARISON STUDY: Head CT 01/04/2020. FINDINGS: There is no mass, hematoma, midline shift, or acute infarct. The para nasal sinuses are clear. The mastoid air cells are clear. The ventricles and sulci demonstrate mild age-related involutional changes. Multiple scattered foci of T2 hyperintensity seen within the periventricular and subcortical white matter are nonspecific but suggestive of mild microvascular ischemic changes. The major vascular flow voids at the skull base are well-maintained. IMPRESSION: No acute intracranial abnormality. Multiple scattered foci of T2 hyperintensity seen within the periventricular and subcortical white matter are nonspecific but favor microvascular ischemic change. 89 disease, Lyme disease, or migraines can also have a similar appearance in the appropriate clinical setting. ACT 112: Negative or not required by law. Electronically signed by: Murali Saucedo M.D. 01/05/2020 8:26 PM Dictated: 01/05/202020 Transcribed: 01/05/202020 Hospital Course (1) Atrial fibrillation with rapid ventricular response: Present on admission with palpitation and dizziness Found to be in AFib with RVR on admission Received cardizim IV in the ER Was starting on IV cardizem drip in the ER Cardiology consulted Was starting on metoprolol 25mg q6h, then transition to Metoprolol succinate 50mg daily Currently on NSR with rate control ECHO showed no significant valvular pathology visualized. left atrial size is normal. Ejection fraction 65 to 70%. Anticoagulated with apixaban. Clinically stable (2) Vertigo: Probable peripheral. CT head showed no acute intracranial abnormality Check MRI head showed no acute intracranial abnormality. Multiple scattered foci of T2 hyperintensity seen within the periventricular and subcortical white matter are nonspecific but favor microvascular ischemic change. Lyme titer order pending due to MRI finding (3) Hypertension: BP stable Continue lisinopril Continue Metoprolol that started during hospital course Continue Monitor BP (4) Diabetes mellitus, type 2: Hgb A1c = 6.8.on discharge Insulin coverage as needed. FBS today = 161. Continue Monitor BS (5) DVT prophylaxis: Apixaban. Ambulate. (6) Discharge planning issues: Anticipated discharge to home. Internal Medicine follow-up with Dr. Peañ. Total Time Total Time Spent Total Time Spent (In Minutes): 35 minutes Total Time Includes: Examination of the Patient, Discharge Planning, Medication Reconciliation, Communication With Other Providers and Other Discharge Plan Discharge Items Patient Disposition: Home - Self-Care Reason For Visit: AFIB WITH RVR,VERTIGO Discharge Diagnosis: Atrial fibrillation with rapid ventricular response Vertigo Hypertension Diabetes mellitus, type 2 Activity: Resume your previous activity Non-emergency contact: Primary Care Provider and Nutrition Associate Call non-emergency contact if: you have any medication questions Follow-up/Referrals: Elise Johnson MD [Primary Care Provider] - 01/12/20 11:40 am (01/12/2020 11:40 AM Provider Norma Sarah PA-C [facility] ) Diet: Carb Consistent or DM2 Addtl Attending Provider Instructions: Follow up with your primary care provider Dr. Peña on 01/12/20 @ 11:40 AM Follow up with cardiology Dr. aHncock (Office will call you for the follow up appointment) Fall precaution Since you are on blood thinner, please monitor for any abnormal bleeding such as blood in your stool and urine,.. Your physician will review your Lyme titer with you at your next follow up appointment Medication Instructions: Eliquis Your condition is typically treated with an anticoagulant. Anticoagulants will thin your blood to help prevent new clots and stroke You should take her medication exactly as directed. Never skip a dose. Never take a double dose. If you miss a dose, take it as soon as you remember. Avoid NSAIDs (Motrin, Aleve, Naproxen, Ibuprofen, Advil, Meloxicam,..) due to risks of bleeding Call your Primary Care doctor if you experience any of the following: Swelling or Pain in your leg Sudden, continuous pain deep in a muscle Pain that worsens when you are active or when you stand still for a long time Chest Pain Sudden Shortness of Breath Rapid or pounding heart beat Fainting Dizziness Cough with blood or bloody sputum Sweating more than normal Bruises Heavy or uncontrolled bleeding Blood in your urine, stool or vomit Black or tarry stools Pending Studies at Discharge: Yes Studies:: Lyme titer Stand-Alone Forms: [facility], Smoking Cessation Medications and DC Order Prescriptions: New metoprolol succinate 50 mg Tablet Extended Release 24 Hr 50 mg PO QAM 30 Days Qty: 30 RF: 0 Eliquis 5 mg Tablet 5 mg PO BID 30 Days Qty: 60 RF: 0 Continued multivitamin Tablet 1 tab PO QAM RF: 0 lisinopril 20 mg Tablet 20 mg PO QAM RF: 0 fluticasone propionate [Flonase Allergy Relief] 50 mcg/actuation [place],Suspension 2 spray INTRANASAL BID RF: 0 magnesium 30 mg Tablet 30 mg PO QAM RF: 0 [employer] Fish Oil 300-1,000 mg Capsule 2 cap PO HS RF: 0 Vitamin D3 3,000 unit PO QAM RF: 0 metformin 500 mg tablet extended release 24 hr 500 mg PO HS RF: 0 Discontinued propranolol 10 mg Tablet 10 mg PO BID RF: 0 amoxicillin 500 mg capsule 500 mg PO TID RF: 0 aspirin 81 mg Tablet,Delayed Release (Dr/Ec) 81 mg PO DAILY RF: 0 Discharge Orders: Discharge Order (Routine); Ordered 01/06/20 Ordered By: Justin Mackey Admission Data Admit Date/Time: 01/04/20 16:18 Attending Provider: Justin Mackey Admit Provider: Vince Hunt Primary Care Provider: Elise Johnson Other Providers: Vince Hunt ; Jose Angel Hancock Other Interventions: Discharge Summary Assessment (RN) Last Done: 01/06/20 12:23 DC Date/Time DO NOT enter until pt leaves facility: 01/06/20 13:15
== END 2020-01-06 13:15 | disposition home or self-care (01) | DRG 310 ==
LOC: ED 11:34 → SUATTDRO 16:18 → 2S 16:18